=== PATIENT | female | born 1960 | race Caucasian/White ===

== ENCOUNTER 2022-05-29 14:44 | Observation (INO) | payer OTHER ==
[2022-05-29] MEDS ORDERED: Communication Order-Pharmacy FS SCH (15:30)
[2022-05-29 15:38] LABS: ALT (SGPT) 26 U/L (8-55); AST (SGOT) 36 U/L (5-34); Albumin 4.4 g/dL (3.5-5.0); Alkaline Phosphatase 35 U/L (40-110); Anion Gap 15 mmol/L (10-20); BUN (Urea Nitrogen) 22 mg/dL (9.8-20.1); Bilirubin, Total 0.4 mg/dL (0.2-1.2); Calc. Creatinine Clearance 0 mL/min (70-130); Calcium 8.5 mg/dL (7.8-10.44); Carbon Dioxide 26 mmol/L (22-29); Chloride 99 mmol/L (98-107); Estimated GFR 42; Globulin 2.8 g/dL (2.4-3.5); Glucose 223 mg/dL (70-105); Potassium 4.3 mmol/L (3.5-5.1); Protein, Total 7.2 g/dL (6.0-8.3); Sodium 136 mmol/L (136-145)
[2022-05-29 15:41] LABS: #Eosinphils 0.1 10x3/uL (0.0-0.5); #Monocytes 0.5 10x3/uL (0.0-1.1); #Neutrophils 4.6 10x3/uL (1.5-8.4); %Basophils 0.6 % (0.0-2.0); %Eosinophils 0.8 % (0.0-6.0); %Lymphocytes 19.3 % (18.0-47.0); %Monocytes 7.1 % (0.0-10.0); %Neutrophils 71.9 % (40.0-75.0); Hemoglobin 12.4 g/dL (12.0-15.5); Mean Corpuscular Hemoglobin 29.6 pg (27.0-33.0); Mean Corpuscular Volume 87.1 fl (81.6-98.3); Mean Platelet Volume 9.6 fl (7.4-10.4); Platelet Count 197 10x3/uL (150-450); RBC Distribution Width 13.4 % (11.5-14.5); Red Blood Cell (RBC) Count 4.19 10x6/uL (3.90-5.03); White Blood Cell (WBC) Count 6.3 10x3/uL (3.5-10.5)
[2022-05-29] MEDS ORDERED: Nitroglycerin 2% Ointment 1 INCH/1 GM Packet ONE (16:08)
[2022-05-29] MEDS ORDERED: Aspirin Chewable 81 MG TAB ONE (16:08)
[2022-05-29] MEDS ORDERED: Dextrose 5% in Water 1,000 ML IV PRN (16:54)
[2022-05-29] MEDS ORDERED: Dextrose 50% Abboject 50 ML SYRINGE SLOW IVP PRN (16:54)
[2022-05-29] MEDS ORDERED: HumaLOG 300 UNITS/3 ML VIAL SC PRN ×2 (16:54)
[2022-05-29] MEDS ORDERED: Acetaminophen 325 MG TAB PO PRN (16:56)
[2022-05-29] MEDS ORDERED: Ondansetron PF 4 MG/2 ML Vial IVP PRN (16:56)
[2022-05-29] MEDS ORDERED: Ondansetron ODT 4 MG TAB PO PRN (16:56)
[2022-05-29] MEDS ORDERED: Nitroglycerin 0.4 MG TAB (25 Tab Bottle) SL PRN (17:26)
[2022-05-29 17:52] LABS: Magnesium 1.2 mg/dL (1.6-2.6)
[2022-05-29] MEDS: Sodium Chloride 0.9% 1,000 ML IV SCH (18:10)
[2022-05-29 18:27] LABS: Troponin I Less than 0.010 ng/mL (< 0.028)
[2022-05-29 18:31] VITALS: BMI 23.6
[2022-05-29 20:49] LABS: SARS-CoV-2 NAA Rapid Test Not Detected (NotDetected)
[2022-05-29] MEDS ORDERED: Atorvastatin Calcium 40 MG TAB PO SCH (21:00)
[2022-05-29 21:30] LABS: Troponin I Less than 0.010 ng/mL (< 0.028)
[2022-05-29] MEDS ORDERED: traZODone HCl 50 MG TAB PO SCH (23:15)
[2022-05-30] MEDS: Sodium Chloride 0.9% 1,000 ML IV SCH (01:11)
[2022-05-30 04:29] LABS: #Eosinphils 0.1 10x3/uL (0.0-0.5); #Monocytes 0.3 10x3/uL (0.0-1.1); #Neutrophils 2.3 10x3/uL (1.5-8.4); %Basophils 0.9 % (0.0-2.0); %Eosinophils 1.8 % (0.0-6.0); %Lymphocytes 38.7 % (18.0-47.0); %Monocytes 7.3 % (0.0-10.0); %Neutrophils 51.1 % (40.0-75.0); Hemoglobin 10.5 g/dL (12.0-15.5); Mean Corpuscular HGB CONC 33.3 g/dL (32.0-36.0); Mean Corpuscular Hemoglobin 29.3 pg (27.0-33.0); Mean Platelet Volume 9.9 fl (7.4-10.4); Platelet Count 184 10x3/uL (150-450); RBC Distribution Width 13.4 % (11.5-14.5); Red Blood Cell (RBC) Count 3.58 10x6/uL (3.90-5.03); White Blood Cell (WBC) Count 4.5 10x3/uL (3.5-10.5)
[2022-05-30 04:36] LABS: INR-International Normal Ratio 0.9; PTT 26.8 sec (22.0-33.0); Prothrombin Time 10.3 sec (9.5-12.1)
[2022-05-30 04:46] LABS: ALT (SGPT) 20 U/L (8-55); AST (SGOT) 27 U/L (5-34); Albumin 3.6 g/dL (3.5-5.0); Alkaline Phosphatase 36 U/L (40-110); Anion Gap 15 mmol/L (10-20); BUN (Urea Nitrogen) 20 mg/dL (9.8-20.1); Bilirubin, Total 0.2 mg/dL (0.2-1.2); Calc. Creatinine Clearance 48 mL/min (70-130); Calcium 9.3 mg/dL (7.8-10.44); Carbon Dioxide 26 mmol/L (22-29); Cardiac Risk 10.4 (Less than 4.5); Chloride 102 mmol/L (98-107); Cholesterol 166 mg/dl (< 200 Desired); Estimated GFR 55; Globulin 2.7 g/dL (2.4-3.5); Glucose 128 mg/dL (70-105); HDL Cholesterol 16 mg/dL (>60 Neg Risk); Protein, Total 6.3 g/dL (6.0-8.3); Sodium 139 mmol/L (136-145)
[2022-05-30 05:19] LABS: Triglycerides 1216 mg/dL (Less than 150)
[2022-05-30] MEDS ORDERED: Heparin 10,000 UNITS/ 10 ML VIAL ONE ×2 (07:01→08:37)
[2022-05-30] MEDS ORDERED: Nitroglycerin 50 MG/250 ML BOT 250 ML ONE (07:01)
[2022-05-30] MEDS ORDERED: Adenosine 6 MG/2 ML VIAL ONE (07:03)
[2022-05-30] MEDS ORDERED: Verapamil 5 MG/2 ML VIAL ONE (07:03)
[2022-05-30] MEDS ORDERED: Bivalirudin 250 MG VIAL ONE (07:03)
[2022-05-30] MEDS ORDERED: Lidocaine 1% 20 ML MDV ONE (07:04)
[2022-05-30] MEDS ORDERED: Midazolam HCl 2 mg/2 ml Vial ONE ×2 (07:05→08:30)
[2022-05-30] MEDS ORDERED: Fentanyl 100 MCG/2 ML VIAL ONE (07:05)
[2022-05-30] MEDS ORDERED: TICAGRELOR 90 MG TABLET ONE (07:56)
[2022-05-30] MEDS ORDERED: Aspirin 81 mg Enteric Coated Tablet PO SCH (09:00)
[2022-05-30] MEDS ORDERED: Lisinopril 20 MG TAB PO SCH (09:00)
[2022-05-30] MEDS ORDERED: Acetaminophen/Codeine 30-300mg Tablet PO PRN ×2 (09:13)
[2022-05-30] MEDS ORDERED: Sodium Chloride 0.9% 200 ML IV PRN (09:13)
[2022-05-30] MEDS ORDERED: Nitroglycerin 0.4 MG TAB (25 Tab Bottle) SL PRN (09:13)
[2022-05-30] MEDS ORDERED: Iopamidol 300 61% 100 ML VIAL FS ONE (09:48)
[2022-05-30] MEDS ORDERED: Iopamidol 300 61% 50 ML VIAL FS ONE (09:48)
[2022-05-30] MEDS ORDERED: Levothyroxine Sodium 100 MCG TAB PO SCH (10:00)
[2022-05-30 12:05] VITALS: BP 136/63; TEMP 97.6
[2022-05-30 12:56] LABS: Hemoglobin A1c 7.7 % (4.0-6.0)
[2022-05-30] MEDS ORDERED: HumaLOG 300 UNITS/3 ML VIAL SC PRN ×2 (13:00)
[2022-05-30] MEDS ORDERED: TICAGRELOR 90 MG TABLET PO SCH (21:00)
[2022-05-31] MEDS ORDERED: Ezetimibe 10 MG TAB PO SCH (09:00)
== END 2022-05-30 13:39 | disposition home or self-care (01) ==
LOC: CSHERS 14:44 → INTOOBSV 17:57 → CSHTELE 17:57
PROVIDERS: ADMIT Internal Medicine; ATTEND Internal Medicine
PROC: 027236Z Dilation of Coronary Artery, Three Arteries with Three Drug-eluting Intraluminal Devices, Percutaneous Approach (ICD-10-PCS; principal; 2022-05-30)
PROC: 4A023N7 Measurement of Cardiac Sampling and Pressure, Left Heart, Percutaneous Approach (ICD-10-PCS; 2022-05-30)
PROC: B2111ZZ Fluoroscopy of Multiple Coronary Arteries using Low Osmolar Contrast (ICD-10-PCS; 2022-05-30)
DX: I25.110 Atherosclerotic heart disease of native coronary artery with unstable angina pectoris (principal); N17.9 Acute kidney failure, unspecified; I10 Essential (primary) hypertension; E11.9 Type 2 diabetes mellitus without complications; E06.3 Autoimmune thyroiditis; E78.5 Hyperlipidemia, unspecified; M79.7 Fibromyalgia; K21.9 Gastro-esophageal reflux disease without esophagitis; E03.9 Hypothyroidism, unspecified; Z79.82 Long term (current) use of aspirin; Z79.84 Long term (current) use of oral hypoglycemic drugs; Z79.890 Hormone replacement therapy; Z79.899 Other long term (current) drug therapy; Z20.822 Contact with and (suspected) exposure to COVID-19
CPT/HCPCS: 36415; 71045; 80053; 80061; 83036; 83735; 84484; 85025; 85347; 85610; 85730; 92928; 93005; 93458; 94760; 97139; 99152; 99153; C1769; C1874; C1887; C1894; C9600; G0378; J0153; J0583; J1644; J1815; J2250; J3010; J7050; Q9967; U0002

== ENCOUNTER 2022-08-02 15:55 | Outpatient (CLI) | payer OTHER | END 2022-08-02 15:56 | disposition home or self-care (01) | LOC: CSHMAMMO 15:55 | PROVIDERS: ATTEND Family Medicine | DX: Z12.31 Encounter for screening mammogram for malignant neoplasm of breast (principal) | CPT/HCPCS: 77063; 77067 ==

== ENCOUNTER 2022-10-05 12:50 | Emergency (ER) | payer OTHER ==
[2022-10-05 13:28] LABS: #Eosinphils 0.1 10x3/uL (0.0-0.5); #Monocytes 0.4 10x3/uL (0.0-1.1); #Neutrophils 2.9 10x3/uL (1.5-8.4); %Basophils 0.4 % (0.0-2.0); %Eosinophils 1.3 % (0.0-6.0); %Lymphocytes 34.7 % (18.0-47.0); %Monocytes 7.4 % (0.0-10.0); %Neutrophils 55.8 % (40.0-75.0); Mean Corpuscular HGB CONC 33.2 g/dL (32.0-36.0); Mean Corpuscular Hemoglobin 29.6 pg (27.0-33.0); Mean Corpuscular Volume 89.1 fl (81.6-98.3); Mean Platelet Volume 9.6 fl (7.4-10.4); Platelet Count 214 10x3/uL (150-450); RBC Distribution Width 13.8 % (11.5-14.5); Red Blood Cell (RBC) Count 4.05 10x6/uL (3.90-5.03); White Blood Cell (WBC) Count 5.3 10x3/uL (3.5-10.5)
[2022-10-05 13:41] LABS: ALT (SGPT) 22 U/L (8-55); AST (SGOT) 30 U/L (5-34); Albumin 4.3 g/dL (3.5-5.0); Alkaline Phosphatase 26 U/L (40-110); Anion Gap 15 mmol/L (10-20); BUN (Urea Nitrogen) 19 mg/dL (9.8-20.1); Bilirubin, Total 0.5 mg/dL (0.2-1.2); Calc. Creatinine Clearance 0 mL/min (70-130); Calcium 9.6 mg/dL (7.8-10.44); Carbon Dioxide 21 mmol/L (22-29); Chloride 106 mmol/L (98-107); Estimated GFR 44; Globulin 2.9 g/dL (2.4-3.5); Glucose 239 mg/dL (70-105); Potassium 4.4 mmol/L (3.5-5.1); Protein, Total 7.2 g/dL (6.0-8.3); Sodium 138 mmol/L (136-145)
[2022-10-05] MEDS ORDERED: Meclizine HCl 25 MG TAB ONE (15:45)
[2022-10-05 15:52] LABS: Bilirubin Neg (Negative); Blood, Urine Negative (Negative); Clarity Clear (Clear); Glucose, Urine (Dipstick) Normal (Negative); Ketone, Urine Negative (Negative); Leukocyte Negative (Negative); Nitrite Negative (Negative); Protein, Urine (Dipstick) 30 mg/dl (Neg-Trace); Specific Gravity, Urine 1.015 (1.005-1.030)
[2022-10-05 16:00] LABS: Amphetamine Not Detected (NotDetected); Barbiturates Screen Not Detected (NotDetected); Benzodiazepine Screen Not Detected (NotDetected); Cocaine Metabolite Screen Not Detected (NotDetected); Methadone Not Detected (NotDetected); Methamphetamine Not Detected (NotDetected); Opiate Screen Not Detected (NotDetected); Oxycodone Screen Not Detected (NotDetected); Phencyclidine (PCP) Not Detected (NotDetected); THC/Cannabinoid Screen Not Detected (NotDetected); Tricyclic Screen Not Detected (NotDetected)
[2022-10-05 16:01] LABS: Bacteria/HPF 1+ HPF (None Seen); Mucous/LPF Rare LPF (<2+); RBC/HPF 0-3 HPF (0-3); Squamous Epithelial 0-3 HPF (0-3); WBC/HPF 0-3 HPF (0-3)
== END 2022-10-05 18:45 | disposition home or self-care (01) ==
LOC: CSHERS 12:50
DX: N30.00 Acute cystitis without hematuria (principal); J01.90 Acute sinusitis, unspecified; H81.10 Benign paroxysmal vertigo, unspecified ear; E11.9 Type 2 diabetes mellitus without complications; E78.2 Mixed hyperlipidemia; I10 Essential (primary) hypertension
CPT/HCPCS: 36415; 70450; 80053; 80306; 81003; 81015; 85025; 87086; 93005; 96360